=== PATIENT | male | born 1940 | race Caucasian/White ===

== ENCOUNTER 2020-12-17 05:43 | Day surgery (SDC) | payer MEDICARE, OTHER ==
[2020-12-14 11:51] LABS: MICROSCOPIC AUTO
[2020-12-14 11:57] LABS: INTERNATIONAL NORMALIZED RATIO 1.08 (0.93-1.1); PROTHROMBIN TIME 11.5 Seconds (9.6-11.5)
[~2020-12-17] VITALS: Ht 175.3 cm; Wt 63.0 kg
[~2020-12-17 05:43] MED LIST: AMLO-150 PO; ASPI81TA45 PO; ATOR40TA78 PO; CAND32TA7 PO; EMPA10TA PO; INSU100I18 SC; INSU100V13 SC; METF10007 PO; OMEP-110 PO; OXYC1TAB17 PO; TAMS-11 PO; ZOLP10TA PO
[2020-12-17] MEDS ORDERED: CHLORHEXIDINE 15 ML UDC ONE (06:22)
[2020-12-17] MEDS ORDERED: CHLORHEXIDINE 15 ML UDC PO ONE (06:30)
[2020-12-17] MEDS ORDERED: LACTATED RINGERS 1,000 ML IV SCH (06:30)
[2020-12-17 06:36] VITALS: BP 163/83
[2020-12-17] MEDS ORDERED: FENTANYL PF 100 MCG/2ML ONE ×3 (07:18→09:13)
[2020-12-17] MEDS ORDERED: GEMCITABINE HCL 2,000 MG in SODIUM CHLORIDE 0.9% 80 ML IS ONE (07:30)
[2020-12-17] MEDS ORDERED: HYDROmorphone 2 MG/ML, 1ML IVPush PRN (08:00)
[2020-12-17] MEDS ORDERED: hydrALAzine 20 MG/ML, 1ML IV PRN (08:00)
[2020-12-17] MEDS ORDERED: ACETAMINOPHEN 325 MG TABLET PO PRN (08:00)
[2020-12-17] MEDS ORDERED: ALBUTEROL SULFATE 2.5 MG/3 ML NPPB PRN (08:00)
[2020-12-17] MEDS ORDERED: OXYcodone 5 MG/5 ML ORAL.SOL UDC PO PRN (08:00)
[2020-12-17] MEDS ORDERED: LABETALOL 5MG/ML, 20ML IV PRN (08:00)
[2020-12-17] MEDS ORDERED: ROCURONIUM 10MG/ML,5ML ONE (08:38)
[2020-12-17] MEDS ORDERED: PROPOFOL 10 MG/ML, 20ML ONE (08:38)
[2020-12-17] MEDS ORDERED: ONDANSETRON 2MG/ML, 2ML ONE (08:38)
[2020-12-17] MEDS ORDERED: DEXAMETHASONE 4 MG/ML, 1ML ONE (08:38)
[2020-12-17] MEDS ORDERED: GLYCOPYRROLATE 0.2MG/1ML, 5ML ONE (08:38)
[2020-12-17] MEDS ORDERED: SUCCINYLCHOLINE 20 MG/ML, 10ML ONE (08:38)
[2020-12-17] MEDS ORDERED: CEFAZOLIN 1,000 MG ONE (08:38)
[2020-12-17] MEDS ORDERED: NEOSTIGMINE 1 MG/ML, 10ML ONE (08:38)
[2020-12-17] MEDS ORDERED: hydrALAzine 20 MG/ML, 1ML ONE (09:07)
[2020-12-17] MEDS ORDERED: OXYcodone 5 MG/5 ML ORAL.SOL UDC ONE (09:13)
[2020-12-17] MEDS ORDERED: ACETAMINOPHEN 650 MG/20.3 ML UDC ONE (09:14)
[2020-12-17] MEDS: FENTANYL PF 100 MCG/2ML IV PRN ×2 (09:15→09:50)
[2020-12-17] MEDS ORDERED: OPIUM/BELLADONNA SUPP.RECT 16.2-30 MG PR PRN (11:00)
== END 2020-12-17 12:25 | disposition home or self-care (01) ==
LOC: OUT 05:43
PROVIDERS: ATTEND Urology
DX: C67.0 Malignant neoplasm of trigone of bladder (principal); N40.1 Benign prostatic hyperplasia with lower urinary tract symptoms; R35.1 Nocturia; N39.0 Urinary tract infection, site not specified; E11.9 Type 2 diabetes mellitus without complications; I10 Essential (primary) hypertension; E78.5 Hyperlipidemia, unspecified; F41.9 Anxiety disorder, unspecified; Z20.822 Contact with and (suspected) exposure to COVID-19; Z79.4 Long term (current) use of insulin; Z79.82 Long term (current) use of aspirin; Z79.891 Long term (current) use of opiate analgesic; Z79.899 Other long term (current) drug therapy; Z87.891 Personal history of nicotine dependence; Z88.0 Allergy status to penicillin
CPT/HCPCS: 36415; 52240; 52601; 81001; 82962; 84153; 85610; 87086; 88305; 93005; J0330; J0360; J0690; J1100; J2405; J2704; J2710; J3010; J7120; U0003; G0103; J9201